=== PATIENT | male | born 1935 | race Caucasian/White ===

== ENCOUNTER → 2023-11-20 | Outpatient (REF) | payer MEDICARE, OTHER, SELFPAY ==
[2023-11-20 09:56] LABS: Cholesterol 125 mg/dL (200); High Density Lipoprotein 42 mg/dL; Thyroid Stim Hormone (TSH) 2.95 uIU/mL (0.358-3.74); Triglycerides 102 mg/dL; Very Low Density Lipoprotein 20 mg/dL (5-40)
[2023-11-20 09:57] LABS: Hemoglobin A1c 7.6 % (3.8-5.6)
== END ==
LOC: OLS.ACH2 05:00
PROVIDERS: PCP Family Medicine; Visit Provider Family Medicine
DX: E11.9 Type 2 diabetes mellitus without complications (principal); E78.1 Pure hyperglyceridemia
CPT/HCPCS: 36415; 80061; 83036; 84443